=== PATIENT | female | born 1950 | race Caucasian/White ===

== ENCOUNTER 2017-06-05 10:23 | Emergency (ER) | payer BC ==
[2017-06-05 10:44] VITALS: BP 155/82
[2017-06-05] MEDS ORDERED: Lidocaine 1% 50 ML MDV SUBCUT STA (10:44)
--- NOTE | 2017-06-05 10:45 | EDM.PDOC ---
ED HPI GENERAL MEDICAL PROBLEM - General Chief Complaint: Laceration Stated Complaint: Laceration Time Seen by Provider: 06/05/17 10:35 Source of Information: Reports: Patient, RN Notes Reviewed History Limitations: Reports: No Limitations - History of Present Illness INITIAL COMMENTS - FREE TEXT/NARRATIVE: 66 year old female presents to the ED today with laceration to her right orbital region. She was hunting with her and was "scoped" to the right eye. She has a laceration to her eyebrow and another to the lower orbital region. The injury happend about an hour [employer] AN[employer]ING. She had no LOC, vision changes, dizziness, nausea, vomiting. She had no nasal bleeding. She has no bleeding within her eye. Her tetanus is up to date. Right Eye Pain Score (Numeric/FACES): 3 - Related Data Allergies Allergy/AdvReac Type Severity Reaction Status Date / Time No Known Allergies Allergy Verified 05/20/16 16:19 Home Meds: Home Meds Amitriptyline [Elavil] 50 mg PO QPM 09/16/15 [History] Furosemide [Lasix] 20 mg PO DAILY 09/16/15 [History] Acetaminophen [Tylenol Extra Strength] 500 mg PO Q6H PRN 04/06/16 [History] Cholecalciferol (Vitamin D3) [Vitamin D3] 5,000 unit PO DAILY 04/06/16 [History] Gabapentin [Neurontin] 300 mg PO QPM 04/06/16 [History] Magnesium Amino Acid Chelate [Magnesium] 1 tab PO DAILY 04/06/16 [History] Multivitamin [Multivitamins] 1 each PO DAILY 04/06/16 [History] Potassium Chloride 10 meq PO DAILY 04/06/16 [History] Docusate Sodium [Colace] 100 mg PO DAILY PRN 05/01/16 [History] Metoprolol Succinate [Toprol XL] 100 mg PO BID #60 tab.er 05/02/16 [Rx] Rivaroxaban [Xarelto] 20 mg PO DAILY 05/07/16 [History] Past Medical History - Past Health History Medical/Surgical History: Denies Medical/Surgical History Other HEENT History: uses contacts and eyeglasses Cardiovascular History: Reports: Afib, Heart Valve Replacement, Hypertension, Stents Other Cardiovascular History: mitral and tricuspid valve repaired Gastrointestinal History: Reports: GERD 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: Other Psychiatric History: insomnia - Past Surgical History Cardiovascular Surgical History: Reports: Pacer, Other (See Below) Other Cardiovascular Surgeries/Procedures: open heart surgery for valve repair GI Surgical History: Reports: Cholecystectomy Female Surgical History: Reports: Tubal Ligation Social & Family History - Family History Family Medical History: Noncontributory Oncologic: Reports: Other (See Below) - Tobacco Use Smoking Status *Q: Former Smoker Years of Tobacco use: 30 Packs/Tins Daily: 1 Used Tobacco, but Quit: Yes Month Tobacco Last Used: 20 years ago Second Hand Smoke Exposure: No - Caffeine Use Caffeine Use: Reports: Coffee Other Caffeine Use: 1-2 cups - Alcohol Use Days Per Week of Alcohol Use: 2 Number of Drinks Per Day: 2 Total Drinks Per Week: 4 - Recreational Drug Use Recreational Drug Use: No - Living Situation & Occupation Living situation: Reports: , with Spouse Occupation: Employed ED ROS GENERAL - Review of Systems Review Of Systems: See Below Constitutional: Reports: No Symptoms HEENT: Reports: Contact Lenses. Denies: Nosebleed, Vertigo, Vision Change Respiratory: Reports: No Symptoms Cardiovascular: Reports: No Symptoms Skin: Reports: Bruising, Wound Neurological: Reports: No Symptoms. Denies: Confusion, Dizziness, Headache, Numbness, Tingling, Trouble Speaking, Difficulty Walking, Weakness ED EXAM, SKIN/RASH Exam: See Below Exam Limited By: No Limitations General Appearance: Alert, WD/WN, No Apparent Distress Eye Exam: Right Eye: Periorbital Changes (echymosis surrounding the right eye orbit with bruising and two lacerations as described below. no conjuctival injection or bleeding. ), Left Eye: Normal Inspection, Bilateral Eye: EOMI, PERRL Ears: Normal External Exam, Normal TMs Nose: Normal Inspection, Normal Mucosa, No Blood Throat/Mouth: Normal Inspection, Normal Teeth, Normal Oropharynx Head: Facial Swelling, Facial Tenderness, Other (no crepitus, bony step offs, or deformitiy noted to facial bones. no septal deviation or hemotoma. no nasal bleeding ) Neck: Normal Inspection, Supple, Non-Tender, Full Range of Motion. No: Tender Midline Respiratory/Chest: No Respiratory Distress, Lungs Clear Cardiovascular: Regular Rate, Rhythm Neurological: Alert, Oriented, Normal Cognition, Normal Gait Skin: Warm, Dry, Normal Color Location, Skin: Other (lacerations to upper and lower orbital region. Upper laceration measures 2.5cm, lower measures 2 cm. Deep, linear lacerations that are not well approximated. No involvement of the eye lid. ) ED SKIN PROCEDURES - Laceration/Wound Repair Right Upper Other Lac/Wound length In cm: 2.5 (Upper orbital region, within the eyebrow) Appearance: Subcutaneous, Linear, Clean Distal NVT: Neuro & Vascular Intact Anesthetic Type: Local Local Anesthesia - Lidocaine (Xylocaine): 1% Plain Local Anesthetic Volume: 2cc Exploration/Debridement/Repair: Wound Explored, In a Bloodless Field, Explored to Base, No Foreign Material Found Suture Size: other (5-0) # of Sutures: 7 Suture Type: Nylon, Interrupted, Simple Suture Size: other (5-0) # of Sutures: 3 Repaired with: Vicryl Sterile Dressing Applied: Nurse Tetanus Status Addressed: Yes Complications: No Right Lower Other Lac/Wound length In cm: 2 (lower orbital region ) Appearance: Subcutaneous, Linear, Clean Distal NVT: Neuro & Vascular Intact Anesthetic Type: Local Local Anesthetic Volume: 1cc Skin Prep: Saline Exploration/Debridement/Repair: Wound Explored, In a Bloodless Field, Explored to Base, No Foreign Material Found Suture Size: other (5-0) # of Sutures: 6 Suture Type: Nylon, Interrupted, Simple Sterile Dressing Applied: Nurse Tetanus Status Addressed: Yes Complications: No Course - Vital Signs Last Recorded V/S: Last Vital Signs Temp 98.2 F 06/05/17 10:31 Pulse 70 06/05/17 10:31 Resp 18 06/05/17 10:31 BP 155/82 H 06/05/17 10:31 Pulse Ox 100 06/05/17 10:31 - Orders/Labs/Meds Meds: Medications Discontinued Medications Generic Name Dose Route Start Last Admin Trade Name Freq PRN Reason Stop Dose Admin Lidocaine HCl 50 ml 06/05/17 10:44 06/05/17 10:52 Xylocaine 1% SUBCUT 06/05/17 10:45 50 ml NOW STA Administration - Re-Assessments/Exams Free Text/Narrative Re-Assessment/Exam: Patient has no physical exam findings to indicate bony abnormality. She has a normal neuro exam. Wounds repaired. See procedural notes. Educated on wound care , return precautions and f/u instructions. Discharge instructions as documented. Departure - Departure Time of Disposition: 12:02 Disposition: Home, Self-Care 01 Condition: Good Clinical Impression: Laceration - Discharge Information Instructions: Laceration Care, Adult Referrals: Caitie Louise NP [Primary Care Provider] - Forms: ED Department Discharge Additional Instructions: Laceration with suture repair Try to keep initial dressing in place for 24 hours After 24 hours, you can gently wash the wound with gentle soap and water Do not submerge the area in water until the sutures are out Apply antibiotic ointment and keep the wound covered for first 2-3 days then leave open to air Keep wound covered if there is a chance it can get dirty Sutures need to be removed on Wednesday of this next week [facility] removes sutures for free. Their hours are 8am-6pm Wednesday through Wednesday. Return to clinic if signs or symptoms of infection arise, including increased redness, swelling, drainage, or fever Tylenol or Ibuprofen as needed for pain
== END 2017-06-05 12:15 | disposition home or self-care (01) ==
LOC: JD.ED 10:23
DX: S05.41XA Penetrating wound of orbit with or without foreign body, right eye, initial encounter (principal); Z79.899 Other long term (current) drug therapy; Z87.891 Personal history of nicotine dependence; W22.8XXA Striking against or struck by other objects, initial encounter
CPT/HCPCS: 12011; 12013; 99282-25; 99283-25

== ENCOUNTER 2020-05-08 14:38 | Emergency (ER) | payer MEDICARE, OTHER ==
[2020-05-08] MEDS ORDERED: Ondansetron 4 MG/2 ML SDV IVPUSH ONE (14:59)
--- NOTE | 2020-05-08 14:59 | EDM.PDOC ---
ED HPI GENERAL MEDICAL PROBLEM - General Chief Complaint: Trauma Stated Complaint: [facility] Time Seen by Provider: 05/08/20 14:53 Source of Information: Reports: Patient History Limitations: Reports: No Limitations - History of Present Illness INITIAL COMMENTS - FREE TEXT/NARRATIVE: 69-year-old female presents to the ED per [facility] the history suggest that she was out riding her horse this afternoon and the horse likely slipped on icy surface causing her to fall from the horse primarily onto her right shoulder. Patient has amnesia for the event suggesting that she also suffered transient loss of consciousness. Other family members were around but nobody else attended the ED to provide any history as to how long she may have been unresponsive. She is now alert and oriented complaining of only minor headache and no nausea. She states she did have significant nausea initially but it is improved. She believes that the accident occurred around 1230 hrs. today. Chief complaint is pain right proximal shoulder and arm and she has her right arm immobilized with her scarf in a sling-like fashion. Complaining of pain in her right ankle as well. She did weight-bear after falling from the horse and states she has no pain in her pelvis back or hips. Both knees are also normal. She denies any pain in her chest on deep inspiration. Currently she rates her pain as 5-6 out of 10 primarily in her right shoulder. She arrives with a c-collar in place but it is ill fitting. She is not on spine board. Vital signs reveal a temperature 36.4. Her extremities are cool to touch. Blood pressure was 164/82. O2 sats are 97% with respiratory of 20. Heart rate is 74. Onset: Today, Sudden Onset Date: 05/08/20 Onset Time: 12:30 Duration: Hour(s):, Constant Location: Reports: Upper Extremity, Right (Pain primarily right proximal humerus.), Lower Extremity, Right (And right ankle primarily lateral aspect with "Muck" boot still in place) Quality: Reports: Ache, Throbbing Severity: Moderate Improves with: Reports: Rest (To 6 out of 10.) Worsens with: Reports: Movement Context: Reports: Trauma (She is not exactly sure what happened. She was riding a horse and she believes the horse probably slipped on icy surface throwing her from the horse. She has amnesia for the event.). Denies: Activity, Exercise, Lifting, Sick Contact Associated Symptoms: Reports: Confusion (Knees you for the event or of trauma.), Nausea/Vomiting. Denies: Chest Pain ( Transient LOC by history), Cough, cough w sputum, Diaphoresis, Headaches, Loss of Appetite, Malaise, Rash (Transient nausea somewhat better now.), Seizure, Shortness of Breath, Syncope, Weakness Treatments MULE SPINNER: Reports: Spinal Immobilization (With c-collar in place. It was ill fitting.) Right Shoulder Pain Score (Numeric/FACES): 8 - Related Data Allergies Allergy/AdvReac Type Severity Reaction Status Date / Time No Known Allergies Allergy Verified 05/08/20 14:59 Home Meds: Home Meds Amitriptyline [Elavil] 50 mg PO QPM 09/16/15 [History] Furosemide [Lasix] 20 mg PO DAILY 09/16/15 [History] Acetaminophen [Tylenol Extra Strength] 500 mg PO Q6H PRN 04/06/16 [History] Cholecalciferol (Vitamin D3) [Vitamin D3] 5,000 unit PO DAILY 04/06/16 [History] Gabapentin [Neurontin] 300 mg PO QPM 04/06/16 [History] Magnesium Amino Acid Chelate [Magnesium] 1 tab PO DAILY 04/06/16 [History] Multivitamin [Multivitamins] 1 each PO DAILY 04/06/16 [History] Potassium Chloride 10 meq PO DAILY 04/06/16 [History] Docusate Sodium [Colace] 100 mg PO DAILY PRN 05/01/16 [History] Metoprolol Succinate [Toprol XL] 100 mg PO BID #60 tab.er 05/02/16 [Rx] Rivaroxaban [Xarelto] 20 mg PO DAILY 05/07/16 [History] oxyCODONE HCl/Acetaminophen [Percocet 5-325 mg Tablet] 1 - 2 each PO Q4H PRN #20 tablet 05/08/20 [Rx] Past Medical History - Past Health History Medical/Surgical History: Denies Medical/Surgical History Other HEENT History: uses contacts and eyeglasses Cardiovascular History: Reports: Afib, Heart Failure, Heart Valve Replacement, Hypertension, Pacemaker, Stents Other Cardiovascular History: mitral and tricuspid valve repaired Gastrointestinal History: Reports: GERD 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: Musculoskeletal History: Reports: Osteoarthritis, Osteoporosis Other Psychiatric History: insomnia - Past Surgical History Cardiovascular Surgical History: Reports: Pacer, Other (See Below) Other Cardiovascular Surgeries/Procedures: open heart surgery for valve repair GI Surgical History: Reports: Cholecystectomy Female Surgical History: Reports: Tubal Ligation Social & Family History - Family History Family Medical History: Noncontributory Oncologic: Reports: Other (See Below) - Caffeine Use Caffeine Use: Reports: Coffee Other Caffeine Use: 1-2 cups - Living Situation & Occupation Living situation: Reports: , with Spouse Occupation: Employed Review of Systems - Review of Systems Review Of Systems: See Below Constitutional: Denies: Chills, Diaphoresis, Fever, Weakness, Other Eyes: Reports: Glasses Ears: Reports: No Symptoms Nose: Reports: No Symptoms Mouth/Throat: Reports: No Symptoms Respiratory: Reports: Shortness of Breath, Cough. Denies: Wheezing, Pleuritic Chest Pain (On exertion.), Sputum (Chronic mild nonproductive cough) Cardiovascular: Reports: Edema (Sometimes has a little bit of edema in lower extremities.). Denies: Chest Pain, Irregular Heart Rate, Lightheadedness GI/Abdominal: Reports: No Symptoms Genitourinary: Reports: Other (Urinary frequency. Occasional urge incontinence) Musculoskeletal: Reports: Neck Pain, Back Pain, Other (Pain primarily right proximal humerus right lateral ankle) Skin: Reports: No Symptoms Neurological: Reports: No Symptoms ED EXAM, GENERAL - Physical Exam Exam: See Below Exam Limited By: No Limitations General Appearance: Alert, WD/WN, No Apparent Distress, Other (Temperature is 36.4 with a heart rate of 74 and sinus. Respiratory of 20 with O2 sats of 96% room air BP is mildly elevated 164/82. Patient does have primary hypertension) Eye Exam: Bilateral Eye: Normal Inspection, PERRL Ears: Normal TMs Nose: Normal Inspection Throat/Mouth: Normal Inspection, Normal Lips, Normal Oropharynx, Other Head: Atraumatic, Normocephalic, Other (Obvious trauma to the head neck or face.) Neck: Normal Inspection, Non-Tender (On palpation in the midline.), Full Range of Motion, Other (Collar removed as neck was cleared clinically.). No: Lymphadenopathy (L), Lymphadenopathy (R) Respiratory/Chest: Lungs Clear, Normal Breath Sounds, No Accessory Muscle Use, Respiratory Distress (Mild tachypnea.), Decreased Breath Sounds (Sounds are diminished to the lower 20% lung ritchie bilaterally compared with COPD.) Cardiovascular: Normal Peripheral Pulses, Regular Rate, Rhythm, No Edema, No Gallop, No Rub, Systolic Murmur (Grade 1 out of 6 at the left parasternal border.), Other (Well-healed midline sternotomy incision from previous valve surgery on both tricuspid and mitral valves. Pacemaker left upper anterior chest.) Peripheral Pulses: 2+: Radial (L), Radial (R), Posterior Tibial (L), Posterior Tibial (R), Dorsalis Pedis (L), Dorsalis Pedis (R) GI/Abdominal: Normal Bowel Sounds, Soft, Non-Tender, No Organomegaly, No Abnormal Bruit, No Mass, Pelvis Stable. No: Guarding, Rigid, Rebound, Tender Back Exam: Other (Mild kyphosis thoracic spine. No abrasions contusions to the upper or lower back. No pain on firm palpation over the thoracic and lumbar vertebra.) Extremities: Other (Some tenderness elicited with some swelling lateral aspect of the right ankle. Medial ankle ligaments are normal. No apparent injuries to the foot bones on the right side. She is able to lift both legs off the gurney. She has good internal/external rotation of both hips. No evidence of any traumatic injuries to the knees. Pelvis reveals no evidence of injury.). No: Pedal Edema Neurological: Alert, Oriented, CN II-XII Intact, Normal Cognition. No: Normal Gait Psychiatric: Normal Affect, Normal Mood Skin Exam: Warm, Dry, Intact, Normal Color, No Rash #1 Interpretation EKG Date: 05/08/20 Time: 15:18 Rhythm: Other (Ventricular paced rhythm) Rate (Beats/Min): 70 [place]: LAD-Left [place] Deviation (-85 degrees) EKG Interpretation Comments: 100% ventricular paced rhythm no further analysis attempted Course - Vital Signs Last Recorded V/S: Last Vital Signs Temp 36.4 C 05/08/20 14:53 Pulse 74 05/08/20 14:53 Resp 20 05/08/20 14:53 BP 164/82 H 05/08/20 14:53 Pulse Ox 96 05/08/20 14:53 - Orders/Labs/Meds Orders: Active Orders 24 hr Category Date Time Status EKG Documentation Completion [RC] STAT Care 05/08/20 14:55 Active Ankle Min 3V Rt [CR] Stat Exams 05/08/20 14:59 Taken Cervical Spine wo Cont [CT] Stat Exams 05/08/20 14:57 Taken Chest 1V Frontal [CR] Stat Exams 05/08/20 14:54 Taken Head wo Cont [CT] Stat Exams 05/08/20 14:56 Taken Humerus Rt [CR] Stat Exams 05/08/20 14:58 Taken URINALYSIS W/MICROSCOPIC [UA W/MICROSCOPIC] [URIN] Stat Lab 05/08/20 14:56 Ordered Dextrose 5%-0.9% NaCl [Dextrose 5%-Normal Saline] 1,000 Med 05/08/20 15:00 Active ml IV ASDIRECTED Durable Medical Equipment for Discharge [DME for Oth 05/08/20 16:43 Ordered Discharge] [COMM] Stat Medication Orders Dextrose/Sodium Chloride (Dextrose 5%-Normal Saline) 1,000 mls @ 150 mls/hr IV ASDIRECTED BERNABE Last Admin: 05/08/20 15:18 Dose: 150 mls/hr Documented by: RAIZA Labs: Laboratory Tests 05/08/20 05/08/20 05/08/20 Range/Units 15:56 15:56 15:56 WBC 8.33 (3.98-10.04) K/mm3 RBC 3.63 L (3.98-5.22) M/mm3 Hgb 11.3 D (11.2-15.7) gm/dl Hct 36.2 (34.1-44.9) % MCV 99.7 H (79.4-94.8) fl MCH 31.1 (25.6-32.2) pg MCHC 31.2 L (32.2-35.5) g/dl RDW Std Deviation 49.1 H (36.4-46.3) fL Plt Count 170 L (182-369) K/mm3 MPV 9.1 L (9.4-12.3) fl Neut % (Auto) 87.6 H (34.0-71.1) % Lymph % (Auto) 7.9 L (19.3-51.7) % [place] % (Auto) 3.6 L (4.7-12.5) % Eos % (Auto) 0.7 (0.7-5.8) Baso % (Auto) 0.1 (0.1-1.2) % Neut # (Auto) 7.29 H (1.56-6.13) K/mm3 Lymph # (Auto) 0.66 L (1.18-3.74) K/mm3 [place] # (Auto) 0.30 (0.24-0.36) K/mm3 Eos # (Auto) 0.06 (0.04-0.36) K/mm3 Baso # (Auto) 0.01 (0.01-0.08) K/mm3 Manual Slide Review Abnormal smear PT 13.6 H (9.7-11.7) SECONDS INR 1.28 APTT 29 (22-31) SECONDS Sodium 143 (136-145) mEq/L Potassium 4.3 (3.5-5.1) mEq/L Chloride 105 (98-107) mEq/L Carbon Dioxide 28 (21-32) mEq/L Anion Gap 14.3 (5-15) BUN 18 (7-18) mg/dL Creatinine 1.2 H (0.55-1.02) mg/dL Est Cr Clr Drug Dosing 42.59 mL/min Estimated GFR (MDRD) 45 (>60) mL/min BUN/Creatinine Ratio 15.0 (14-18) Glucose 115 (80-115) mg/dL Calcium 9.7 (8.5-10.1) mg/dL Magnesium 2.2 (1.8-2.4) mg/dl Total Bilirubin 0.7 (0.2-1.0) mg/dL AST 31 (15-37) U/L ALT 43 (14-59) U/L Alkaline Phosphatase 126 H (46-116) U/L NT-Pro-B Natriuret Pep (0-125) pg/mL Total Protein 6.7 (6.4-8.2) g/dl Albumin 4.0 (3.4-5.0) g/dl Globulin 2.7 gm/dL Albumin/Globulin Ratio 1.5 (1-2) 05/08/20 Range/Units 15:56 WBC (3.98-10.04) K/mm3 RBC (3.98-5.22) M/mm3 Hgb (11.2-15.7) gm/dl Hct (34.1-44.9) % MCV (79.4-94.8) fl MCH (25.6-32.2) pg MCHC (32.2-35.5) g/dl RDW Std Deviation (36.4-46.3) fL Plt Count (182-369) K/mm3 MPV (9.4-12.3) fl Neut % (Auto) (34.0-71.1) % Lymph % (Auto) (19.3-51.7) % [place] % (Auto) (4.7-12.5) % Eos % (Auto) (0.7-5.8) Baso % (Auto) (0.1-1.2) % Neut # (Auto) (1.56-6.13) K/mm3 Lymph # (Auto) (1.18-3.74) K/mm3 [place] # (Auto) (0.24-0.36) K/mm3 Eos # (Auto) (0.04-0.36) K/mm3 Baso # (Auto) (0.01-0.08) K/mm3 Manual Slide Review PT (9.7-11.7) SECONDS INR APTT (22-31) SECONDS Sodium (136-145) mEq/L Potassium (3.5-5.1) mEq/L Chloride (98-107) mEq/L Carbon Dioxide (21-32) mEq/L Anion Gap (5-15) BUN (7-18) mg/dL Creatinine (0.55-1.02) mg/dL Est Cr Clr Drug Dosing mL/min Estimated GFR (MDRD) (>60) mL/min BUN/Creatinine Ratio (14-18) Glucose (80-115) mg/dL Calcium (8.5-10.1) mg/dL Magnesium (1.8-2.4) mg/dl Total Bilirubin (0.2-1.0) mg/dL AST (15-37) U/L ALT (14-59) U/L Alkaline Phosphatase (46-116) U/L NT-Pro-B Natriuret Pep 1047 H (0-125) pg/mL Total Protein (6.4-8.2) g/dl Albumin (3.4-5.0) g/dl Globulin gm/dL Albumin/Globulin Ratio (1-2) Meds: Medications Generic Name Dose Route Start Last Admin Trade Name Freq PRN Reason Stop Dose Admin Dextrose/Sodium Chloride 1,000 mls @ 150 mls/hr 05/08/20 15:00 05/08/20 15:18 Dextrose 5%-Normal Saline IV 150 mls/hr ASDIRECTED BERNABE Administration Discontinued Medications Generic Name Dose Route Start Last Admin Trade Name Garth PRN Reason Stop Dose Admin Hydromorphone HCl 0.5 mg 05/08/20 15:00 05/08/20 15:19 Dilaudid IVPUSH 05/08/20 15:01 0.5 mg ONETIME ONE Administration Ondansetron HCl 4 mg 05/08/20 14:59 05/08/20 15:19 Zofran IVPUSH 05/08/20 15:00 4 mg ONETIME ONE Administration - Radiology Interpretation Free Text/Narrative:: 69-year-old female presents to the ED for evaluation of injuries sustained from falling from a horse. It is suspect that the horse slipped on icy surface and they both fell to the ground. Patient has amnesia for the event and there are no family members around to document what is happened to her. She believes she lost consciousness for a brief period of time. At this time she has no headache but did have nausea initially which is somewhat better. Primary pain is proximal right shoulder and right lateral ankle. No other injuries were identified on complete physical exam. She will have CT head and cervical spine performed. She will have x-rays of her right humerus and right ankle carried out. IV will be D5 normal saline at 150 mils per hour. Given Dilaudid 0.5 mg IV for pain relief with Zofran 4 mg IV for nausea relief. Routine labs obtained. Urinalysis when 1 becomes available to us. - Re-Assessments/Exams Free Text/Narrative Re-Assessment/Exam: 05/08/20 16:30: CT of the brain reveals no intracranial bleeding or mass-effect. No skull fractures identified. Diffuse small vessel ischemic change appreciated both basal ganglia appropriate for the patient's age. CT cervical spine reveals advanced degenerative changes at multiple levels particularly of the facet joints. Alignment is normal and there is no fractures. X-ray of the right humerus reveals a slightly impacted fracture of the proximal right humerus with good position. She will be treated with a sling and swath. Chest x-ray reveals no fractured ribs on the right side and acromioclavicular joint and scapula on the right side are normal as well. X-ray of the right ankle reveals no fractures in either malleoli. Appears to have sprained the lateral ligaments. This will be treated with an Shady wrap on during the day and off at night for the next 10 days. The plan will be to discharge the patient with the sling and swath on the right upper extremity for the next 3 weeks. I will have her follow-up with Dr. Gallo in the orthopedic surgical clinic. She will phone and make her own appointment. I have placed her on Percocet tabs 5/325 mg strength ideally 1 tablet with Motrin 600 mg every 6 hours for pain relief. Ice pack to the right shoulder for 1/2-hour out of every 4 hours for the next 2 days. She likely suffered a closed head injury with possible concussion as there appears to be transient loss of consciousness. She will not be very active in the next few weeks due to her other injuries but advised to make sure she does not hurt her head or take any chances that wish caused her to hurt her head in the next 2 weeks. Departure - Departure Time of Disposition: 16:36 Disposition: Home, Self-Care 01 Condition: Fair Clinical Impression: Animal-rider injured by fall from or being thrown from horse in noncollision accident, initial encounter, Closed head injury with brief loss of consciousness Fracture, humerus closed Qualifiers: Encounter type: initial encounter Humerus Location: proximal Fracture alignment: nondisplaced Laterality: right Sprain of ankle, calcaneofibular ligament Qualifiers: Encounter type: initial encounter Laterality: right Qualified Code(s): S93.411A - Sprain of calcaneofibular ligament of right ankle, initial encounter - Discharge Information *PRESCRIPTION DRUG MONITORING PROGRAM REVIEWED*: Not Applicable *COPY OF PRESCRIPTION DRUG MONITORING REPORT IN PATIENT [place]: Not Applicable Prescriptions: oxyCODONE HCl/Acetaminophen [Percocet 5-325 mg Tablet] 1 - 2 each PO Q4H PRN #20 tablet PRN Reason: pain relief. Instructions: Humerus Fracture Treated With Immobilization, [id number], Ankle Sprain, [id number] Referrals: PCP,None [Primary Care Provider] - Forms: ED Department Discharge Additional Instructions: Evaluation in the emergency room today in regards to injury sustained from a horse accident. It appears most likely that the horse lost its footing and thus slipped and fell causing her to fall from the horse and hit the ground hard primarily landing on your right shoulder. The history also suggest you have amnesia for the event which means you suffered a closed head injury with transient loss of consciousness. At this time there is no clinical evidence that you have suffered a concussion. However you should take concussion precautions which week means no activities over the next 2 weeks that would potentially reinjure your head. X-rays of the right shoulder and arm reveal a fracture of the proximal right humerus up near the shoulder with good position of the bone. Treatment is to wear a sling and swath for the next 3 weeks until the bone can start to heal. We will have you follow-up with Dr. Gallo orthopedic surgeon on the side of the hospital until the bone is well-healed. These phone [phone] to arrange an appointment to see him sometime in the next 10 to 12 days. Chest x-ray revealed no broken ribs or injury to the right shoulder blade. No injury to the collarbone or the acromioclavicular joint on top of your shoulder. X-rays of the right ankle were also carried out and no fractures were identified. It appears that you have sprained the outside of the lateral ligaments of the ankle during the injury today. CT scan of the brain was carried out and reveals no fractures of the skull and no intracranial bleeding or swelling. CT of the neck was also carried out due to the nature of your injury with loss of consciousness. No fractures in the cervical neck bones were identified. There is advanced degenerative arthritic changes at multiple levels in the neck bones. Treatment is time to heal. Suggest ice pack to the right sh oulder 1/2-hour out of every 4 hours for the next 2 days and after that may apply heat to the area. Again the right arm is to be immobilized in sling and swath for the next 3 weeks or until cleared otherwise by Dr. Gallo. Right ankle is to have Shady wrap applied on during the day and off at night for the next 10 days. Pain medicine is to be Percocet tablets 5/325 mg usually 1 tablet with Motrin 600 mg every 6 hours will do the trick to control pain. Of note pain medicine always causes constipation and so this is an issue for you suggest picking up some MiraLAX powder while you are at the drugstore and take 1 scoop daily to prevent constipation from occurring while on the pain pills. Sepsis Event Note (ED) - Focused Exam Vital Signs: Vital Signs Temp Pulse Resp BP Pulse Ox 05/08/20 14:53 36.4 C 74 20 164/82 H 96 - My Orders Last 24 Hours: My Active Orders 05/08/20 14:54 Chest 1V Frontal [CR] Stat 05/08/20 14:55 EKG Documentation Completion [RC] STAT 05/08/20 14:56 Head wo Cont [CT] Stat URINALYSIS W/MICROSCOPIC [UA W/MICROSCOPIC] [URIN] Stat 05/08/20 14:57 Cervical Spine wo Cont [CT] Stat 05/08/20 14:58 Humerus Rt [CR] Stat 05/08/20 14:59 Ankle Min 3V Rt [CR] Stat 05/08/20 15:00 Dextrose 5%-0.9% NaCl [Dextrose 5%-Normal Saline] 1,000 ml IV ASDIRECTED 05/08/20 16:43 Durable Medical Equipment for Discharge [DME for Discharge] [COMM] Stat - Assessment/Plan Last 24 Hours: My Active Orders 05/08/20 14:54 Chest 1V Frontal [CR] Stat 05/08/20 14:55 EKG Documentation Completion [RC] STAT 05/08/20 14:56 Head wo Cont [CT] Stat URINALYSIS W/MICROSCOPIC [UA W/MICROSCOPIC] [URIN] Stat 05/08/20 14:57 Cervical Spine wo Cont [CT] Stat 05/08/20 14:58 Humerus Rt [CR] Stat 05/08/20 14:59 Ankle Min 3V Rt [CR] Stat 05/08/20 15:00 Dextrose 5%-0.9% NaCl [Dextrose 5%-Normal Saline] 1,000 ml IV ASDIRECTED 05/08/20 16:43 Durable Medical Equipment for Discharge [DME for Discharge] [COMM] Stat
[2020-05-08] MEDS ORDERED: Dextrose 5%-0.9% NaCl 1,000 ML IV SCH (15:00)
[2020-05-08] MEDS ORDERED: HYDROmorphone 0.5 MG/0.5 ML Syringe IVPUSH ONE (15:00)
[2020-05-08 17:17] VITALS: BP 169/91; PULSE 70
== END 2020-05-08 17:00 | disposition home or self-care (01) ==
LOC: JD.ED 14:38
DX: S42.211A Unspecified displaced fracture of surgical neck of right humerus, initial encounter for closed fracture (principal); S82.831A Other fracture of upper and lower end of right fibula, initial encounter for closed fracture; S06.9X9A Unspecified intracranial injury with loss of consciousness of unspecified duration, initial encounter; S93.411A Sprain of calcaneofibular ligament of right ankle, initial encounter; I48.91 Unspecified atrial fibrillation; I11.0 Hypertensive heart disease with heart failure; I50.9 Heart failure, unspecified; M40.204 Unspecified kyphosis, thoracic region; Z79.899 Other long term (current) drug therapy; Z79.01 Long term (current) use of anticoagulants; V80.010A Animal-rider injured by fall from or being thrown from horse in noncollision accident, initial encounter
CPT/HCPCS: 36415; 70450; 71045; 72125; 73060-RT; 73610-RT; 80053; 83735; 83880; 85025; 85610; 85730; 93005; 96374; 96375; 99284; 99285-25; J1170; J2405; J7042

== ENCOUNTER 2021-03-30 16:43 | Emergency (ER) | payer MEDICARE, OTHER ==
[2021-03-30 17:14] VITALS: BP 153/102; PULSE 91
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
--- NOTE | 2021-03-31 07:20 | CR ---
Left knee: 4 views of the left knee were obtained. Comparison: No prior left knee study is available, subsequent left knee CT exam performed later on the same date is available. Lateral plateau is slightly irregular compatible with a small fracture. Small joint effusion is seen. No additional fracture or other abnormality is appreciated. Impression: 1. Slight lateral tibial plateau fracture. 2. Small joint effusion. Diagnostic code #3
--- NOTE | 2021-04-01 08:29 | CT ---
CT left knee Technique: Multiple axial sections through the left knee were obtained. Reconstructed coronal and sagittal images were obtained. Comparison: Prior left knee radiographic exam performed earlier on the same day (5:21 PM). Findings: Slightly comminuted fracture is seen within the lateral tibial plateau which shows minimal impaction and articular extension. This involves the posterior aspect of the tibial plateau. Additional slightly impacted fracture is noted within the posterior aspect of the medial region of the medial tibial plateau. Joint effusion is seen. Osteopenia is noted. Calcifications are seen off the medial and posterior joint compatible with dystrophic calcifications. Small bone island is noted within the distal right femoral condyle. Minimal calcification is seen within the lateral aspect of the lateral tibial plateau compatible with additional dystrophic calcification. Impression: 1. Slightly impacted fractures within the posterior aspect of the lateral tibial plateau as well as minimal impacted fracture within the medial aspect of the medial tibial plateau. 2. Joint effusion. 3. Slight dystrophic calcifications and osteopenia. Diagnostic code #3 I agree with preliminary report from [facility], finalized on 03/30/21, 9:20 PM CDT, code 1 MTDD
== END 2021-03-30 19:36 | disposition home or self-care (01) ==
LOC: JD.ED 16:43
DX: S82.142A Displaced bicondylar fracture of left tibia, initial encounter for closed fracture (principal); I48.91 Unspecified atrial fibrillation; I11.0 Hypertensive heart disease with heart failure; I50.9 Heart failure, unspecified; M19.90 Unspecified osteoarthritis, unspecified site; Z79.899 Other long term (current) drug therapy; Z79.01 Long term (current) use of anticoagulants; V86.59XA Driver of other special all-terrain or other off-road motor vehicle injured in nontraffic accident, initial encounter
CPT/HCPCS: 73564-26-LT; 73564-LT; 73700-26-LT; 73700-LT; 99283; 99284-25

== ENCOUNTER 2022-06-11 20:30 | Inpatient (IN) | payer MEDICARE, OTHER ==
[2022-06-11] MEDS ORDERED: Sodium Chloride 0.9% 10 ML Syringe FLUSH PRN (21:02)
[2022-06-11] MEDS ORDERED: Sodium Chloride 0.9% 1,000 ML IV ONE (21:03)
[2022-06-11] MEDS ORDERED: HYDROmorphone 0.5 MG/0.5 ML Syringe IVPUSH ONE (21:05)
[2022-06-11 21:54] LABS: ESTIMATED GFR 37 mL/min (>60)
[2022-06-11] MEDS ORDERED: Iopamidol 612 MG/ML 100 ML Bottle IVPUSH ONE (22:24)
[2022-06-11] MEDS ORDERED: VANCOmycin 1.75 GM/350 ML 1.75 GM in Premix Bag 1 BAG IV ONE (22:56)
[2022-06-12] MEDS ORDERED: Acetaminophen 325 MG Tab PO PRN (00:51)
[2022-06-12] MEDS ORDERED: Ondansetron 4 MG/2 ML SDV IV PRN (00:51)
[2022-06-12] MEDS ORDERED: Piperacillin/Tazobactam 4.5 GM in Sodium Chloride 0.9% 100 ML IV ONE (01:00)
[2022-06-12] MEDS ORDERED: Piperacillin/Tazobactam 3.375 GM in Sodium Chloride 0.9% 100 ML IV SCH (01:00)
[2022-06-12] MEDS: Sodium Chloride 0.9% 1,000 ML IV SCH ×2 (01:41→14:10)
[2022-06-12] MEDS: Piperacillin/Tazobactam 4.5 GM in Sodium Chloride 0.9% 100 ML IV SCH ×2 (08:42→17:12)
[2022-06-12] MEDS: Metoprolol Succinate 50 MG Tab.ER PO SCH ×2 (08:46→20:59)
[2022-06-12] MEDS: Potassium Chloride 10 MEQ Tab.ER PO SCH (08:46)
[2022-06-12] MEDS: Furosemide 20 MG Tab PO SCH (08:46)
[2022-06-12] MEDS ORDERED: Lidocaine 1% with EPINEPHrine 1:100,000 10 ML MDV ONE ×2 (10:03)
[2022-06-12] MEDS ORDERED: Bupivacaine 0.5% 30 ML SDV ONE (10:03)
[2022-06-12] MEDS ORDERED: Midazolam 1 MG/ML 2 ML SDV ONE (10:16)
[2022-06-12] MEDS ORDERED: fentaNYL 100 MCG/2 ML SDV ONE (10:16)
[2022-06-12] MEDS ORDERED: Lidocaine 1% 6 ML ONE (10:16)
[2022-06-12] MEDS ORDERED: Dexmedetomidine 200 MCG/2 ML SDV ONE (10:20)
[2022-06-12] MEDS ORDERED: Propofol 200 MG/20 ML SDV ONE ×2 (10:21→10:22)
[2022-06-12] MEDS ORDERED: Phenylephrine HCl In 0.9% NaCl 1 MG/10 ML Vial ONE (10:59)
[2022-06-12] MEDS: oxyCODONE 5 MG Tab PO PRN (15:08)
[2022-06-12] MEDS: Gabapentin 300 MG Cap PO SCH (17:01)
[2022-06-12] MEDS: Amitriptyline 25 MG Tab PO SCH (20:59)
[2022-06-13] MEDS: Piperacillin/Tazobactam 4.5 GM in Sodium Chloride 0.9% 100 ML IV SCH ×3 (00:29→16:01)
[2022-06-13] MEDS: Sodium Chloride 0.9% 1,000 ML IV SCH (05:02)
[2022-06-13] MEDS: Bacitracin Oint 15 GM Tube TOP SCH (08:00)
[2022-06-13] MEDS: Metoprolol Succinate 50 MG Tab.ER PO SCH ×2 (08:02→20:31)
[2022-06-13] MEDS: Furosemide 20 MG Tab PO SCH (08:03)
[2022-06-13] MEDS: Potassium Chloride 10 MEQ Tab.ER PO SCH (08:03)
[2022-06-13] MEDS: oxyCODONE 5 MG Tab PO PRN (08:10)
[2022-06-13] MEDS ORDERED: Collagenase Oint 30 GM Tube TOP SCH (09:00)
[2022-06-13] MEDS: Gabapentin 300 MG Cap PO SCH (17:07)
[2022-06-13] MEDS: Amitriptyline 25 MG Tab PO SCH (20:31)
[2022-06-13] MEDS ORDERED: VANCOmycin 1.25 GM/250 ML 1.25 GM in Premix Bag 1 BAG IV SCH (23:00)
[2022-06-14] MEDS: Piperacillin/Tazobactam 4.5 GM in Sodium Chloride 0.9% 100 ML IV SCH ×2 (01:27→08:21)
[2022-06-14] MEDS: Bacitracin Oint 15 GM Tube TOP SCH (08:23)
[2022-06-14] MEDS: oxyCODONE 5 MG Tab PO PRN (08:24)
[2022-06-14] MEDS: Potassium Chloride 10 MEQ Tab.ER PO SCH (08:24)
[2022-06-14] MEDS: Metoprolol Succinate 50 MG Tab.ER PO SCH (08:25)
[2022-06-14] MEDS: Furosemide 20 MG Tab PO SCH (08:26)
[2022-06-14 08:29] VITALS: BP 118/98; PULSE 94
[2022-06-14] MEDS ORDERED: Rivaroxaban 10 MG Tab PO SCH (09:00)
== END 2022-06-14 12:00 | disposition home or self-care (01) | DRG 572 ==
LOC: JD.ED 20:30 → JD.MS 23:08 → OBSVTOIN 23:08 → JD.ED 06-12 00:12
PROVIDERS: ADMIT Internal Medicine; ATTEND Internal Medicine
PROC: 0JBP0ZZ Excision of Left Lower Leg Subcutaneous Tissue and Fascia, Open Approach (ICD-10-PCS; principal; 2022-06-12)
DX: L03.116 Cellulitis of left lower limb (principal); S81.802A Unspecified open wound, left lower leg, initial encounter; W22.09XA Striking against other stationary object, initial encounter; I48.91 Unspecified atrial fibrillation; I48.0 Paroxysmal atrial fibrillation; I11.0 Hypertensive heart disease with heart failure; I50.9 Heart failure, unspecified; M19.90 Unspecified osteoarthritis, unspecified site; K21.9 Gastro-esophageal reflux disease without esophagitis; Z95.2 Presence of prosthetic heart valve; Z79.899 Other long term (current) drug therapy; Z98.890 Other specified postprocedural states; Z79.01 Long term (current) use of anticoagulants; Z90.49 Acquired absence of other specified parts of digestive tract; Z98.51 Tubal ligation status
CPT/HCPCS: 36415; 73701; 80053; 83605; 85007; 85027; 85610; 86140; 87040 ×2; J1170; J3490; J7030; Q9967; 00400; 80048; 80202; 87070; 87075; 87077; 87186; 87205; 96361; 96365; 96366; 96367; 96375; 99284-25; A9270-GY; G0378; J2250; J2543; J2704; J3010; J3370; J7050

== ENCOUNTER 2024-11-29 21:00 | Emergency (ER) | payer MEDICARE, OTHER ==
[2024-11-29] MEDS ORDERED: Sodium Chloride 0.9% 10 ML Syringe FLUSH PRN (21:17)
[2024-11-29 21:26] LABS: BASOPHILS PERCENT AUTO 0.5 % (0.0-1.0); EOSINOPHILS ABSOLUTE AUTO 0.1 K/mm3 (0.0-0.4); HEMATOCRIT 42.1 % (37.0-47.0); HEMOGLOBIN 13.7 gm/dl (12.0-16.0); IMMATURE GRAN ABSOLUTE AUTO 0.02 K/mm3 (0.00-0.05); IMMATURE GRAN PERCENT AUTO 0.4 % (0.0-0.4); LYMPHOCYTES ABSOLUTE AUTO 1.1 K/mm3 (1.0-4.8); LYMPHOCYTES PERCENT AUTO 19.7 % (24.0-44.0); MEAN CORPUSCULAR HEMOGLOBIN 31.5 pg (28.0-32.0); MEAN CORPUSCULAR HGB CONC 32.5 g/dl (32.0-36.0); MEAN CORPUSCULAR VOLUME 96.8 fl (83.0-99.0); MEAN PLATELET VOLUME 10.6 fl (9.4-12.3); MONOCYTES ABSOLUTE AUTO 0.4 K/mm3 (0.0-0.8); MONOCYTES PERCENT AUTO 6.6 % (0.0-8.0); NEUTROPHILS ABSOLUTE AUTO 3.9 K/mm3 (1.8-7.7); NEUTROPHILS PERCENT AUTO 70.8 % (41.0-71.0); PLATELET COUNT,PLT 180 K/mm3 (150-400); RED BLOOD CELL COUNT 4.35 M/mm3 (4.10-5.30); WHITE BLOOD CELL COUNT,WBC 5.49 K/mm3 (3.9-11.3)
[2024-11-29] MEDS: Diltiazem 25 MG/5 ML SDV IVPUSH ONE (21:51)
[2024-11-29 21:58] LABS: A/G RATIO 1.1 (1-2); ANION GAP 10.9 (5-15); BILIRUBIN TOTAL 0.3 mg/dL (0.2-1.0); BUN/CREATININE RATIO 16.9 (14-18); CALCIUM 10.3 mg/dL (8.5-10.1); CREATININE 1.3 mg/dL (0.55-1.02); EST CRCL DRUG DOSING (CG) 35.2 mL/min; MAGNESIUM 2.3 mg/dL (1.8-2.4); PROTEIN TOTAL,TP 7.5 g/dl (6.4-8.2); TSH 3.556 uIU/mL (0.358-3.74)
[2024-11-29 21:59] LABS: POTASSIUM,K 3.9 mEq/L (3.5-5.1)
[2024-11-29 22:36] LABS: APPEARANCE,URINE CLEAR (Clear); BILIRUBIN,URINE NEGATIVE (Negative); COLOR,URINE LIGHT YELLOW (Yellow); GLUCOSE,URINE NEGATIVE (Negative); KETONES,URINE NEGATIVE (Negative); LEUKOCYTE ESTERASE,URINE TRACE (Negative); NITRITE,URINE NEGATIVE (Negative); OCCULT BLOOD,URINE NEGATIVE (Negative); PH,URINE 6.5 (5.0-8.0); PROTEIN,URINE NEGATIVE (Negative); UROBILINOGEN,URINE 0.2 (0.2-1.0)
[2024-11-29 22:44] LABS: BACTERIA,URINE FEW /hpf (FEW); MUCUS,URINE FEW /hpf (FEW); RBC,URINE 0-5 /hpf (0-5); SQUAMOUS EPITHELIAL CELLS,UR 0-5 /hpf (0-5); WBC,URINE 0-5 /hpf (0-5)
[2024-11-30 07:05] VITALS: BP 115/79; PULSE 94
== END 2024-11-30 06:03 ==
LOC: JD.ED 21:00
DX: I48.91 Unspecified atrial fibrillation (principal); E83.52 Hypercalcemia; R94.31 Abnormal electrocardiogram [ECG] [EKG]; R79.89 Other specified abnormal findings of blood chemistry; Z45.010 Encounter for checking and testing of cardiac pacemaker pulse generator [battery]; I11.0 Hypertensive heart disease with heart failure; I50.9 Heart failure, unspecified; K21.9 Gastro-esophageal reflux disease without esophagitis; Z90.49 Acquired absence of other specified parts of digestive tract; Z79.899 Other long term (current) drug therapy
CPT/HCPCS: 36415; 71045; 71045-26; 80053; 80162; 81001; 83735; 83880; 84443; 84484; 85025; 87086; 93005; 93010; 96374; 99285; 99285-25; J3490

== ENCOUNTER → 2024-12-07 | Day surgery (SDC) | payer MEDICARE, OTHER ==
[2024-12-07] MEDS: Phenylephrine 2.5% Ophth Soln 2 ML Bot EYELF SCH (07:47)
[2024-12-07] MEDS: Lidocaine 1% PF 2 ML SDV INJECT SCH (07:47)
[2024-12-07] MEDS: Brimonidine 0.2% Ophth Soln 5 ML Bottle EYELF SCH (07:47)
[2024-12-07] MEDS: Pilocarpine 4% Ophth Soln 15 ML Bot EYELF SCH (07:47)
[2024-12-07] MEDS: Cefuroxime 10 MG/ML SYRINGE EYELF SCH (07:47)
[2024-12-07] MEDS: Tetracaine HCl/PF 0.5% 4 ML Bottle EYEBOTH SCH (07:47)
[2024-12-07] MEDS: Polymyxin B/Trimethoprim 10 ML Bottle EYELF SCH (07:48)
[2024-12-07] MEDS: Tropicamide 1% Ophth Soln 3 ML Bottle EYELF SCH (15:35)
[2024-12-07 17:11] VITALS: BP 120/60; PULSE 67
== END ==
LOC: JD.SDS 14:41
PROVIDERS: ATTEND Ophthalmology
DX: H25.812 Combined forms of age-related cataract, left eye (principal); H52.31 Anisometropia; H16.103 Unspecified superficial keratitis, bilateral; H16.223 Keratoconjunctivitis sicca, not specified as Sjogren's, bilateral; H43.813 Vitreous degeneration, bilateral; I48.91 Unspecified atrial fibrillation; Z79.01 Long term (current) use of anticoagulants; Z79.899 Other long term (current) drug therapy
CPT/HCPCS: 66984; A9270; J0697; J3490

== ENCOUNTER 2025-03-16 19:11 | Emergency (ER) | payer MEDICARE, OTHER ==
[2025-03-16] MEDS ORDERED: Sodium Chloride 0.9% 10 ML Syringe FLUSH PRN (19:34)
[2025-03-16 19:42] LABS: BASOPHILS ABSOLUTE AUTO 0.0 K/mm3 (0.0-0.2); BASOPHILS PERCENT AUTO 0.2 % (0.0-1.0); EOSINOPHILS ABSOLUTE AUTO 0.1 K/mm3 (0.0-0.4); EOSINOPHILS PERCENT AUTO 1.8 % (0.0-6.0); IMMATURE GRAN ABSOLUTE AUTO 0.01 K/mm3 (0.00-0.05); IMMATURE GRAN PERCENT AUTO 0.2 % (0.0-0.4); LYMPHOCYTES ABSOLUTE AUTO 1.1 K/mm3 (1.0-4.8); LYMPHOCYTES PERCENT AUTO 25.9 % (24.0-44.0); MEAN PLATELET VOLUME 10.4 fl (9.4-12.3); MONOCYTES ABSOLUTE AUTO 0.2 K/mm3 (0.0-0.8); MONOCYTES PERCENT AUTO 5.5 % (0.0-8.0); NEUTROPHILS ABSOLUTE AUTO 2.9 K/mm3 (1.8-7.7); NEUTROPHILS PERCENT AUTO 66.4 % (41.0-71.0); NRBC ABSOLUTE 0.00 (0.00-0.02); NRBC PERCENT 0.0 % (0.0-0.2); PLATELET COUNT,PLT 142 K/mm3 (150-400); RED BLOOD CELL COUNT 4.01 M/mm3 (4.10-5.30); WHITE BLOOD CELL COUNT,WBC 4.40 K/mm3 (3.9-11.3)
[2025-03-16 20:06] LABS: A/G RATIO 1.5 (1-2); ALANINE AMINOTRANSFERASE,ALT 52.0 U/L (14-59); ASPARTATE AMNIOTRANSFERASE,AST 30.0 U/L (15-37); BILIRUBIN TOTAL 0.8 mg/dL (0.2-1.0); BLOOD UREA NITROGEN,BUN 14.0 mg/dL (7-18); CARBON DIOXIDE,CO2 29.0 mEq/L (21-32); CHLORIDE,CL 107.0 mEq/L (98-107); CREATININE 1.3 mg/dL (0.55-1.02); EST CRCL DRUG DOSING (CG) 36.62 mL/min; ESTIMATED GFR 44.0 mL/min (>60); GLUCOSE RANDOM 105.0 mg/dL (70-99); POTASSIUM,K 3.9 mEq/L (3.5-5.1); PROTEIN TOTAL,TP 6.7 g/dl (6.4-8.2); SODIUM,NA 143.0 mEq/L (136-145); TROPONIN I HIGH SENSITIVITY 6.0 pg/mL (<=51); TSH 2.325 uIU/mL (0.358-3.74)
[2025-03-16 20:09] LABS: APPEARANCE,URINE CLEAR (Clear); GLUCOSE,URINE NEGATIVE (Negative); OCCULT BLOOD,URINE NEGATIVE (Negative)
[2025-03-16 20:28] LABS: SQUAMOUS EPITHELIAL CELLS,UR 0-5 /hpf (0-5)
[2025-03-16 22:41] VITALS: BP 127/73; PULSE 82
[2025-03-16] MEDS: Lidocaine 1% 2 ML ONE (22:42)
== END 2025-03-16 23:00 | disposition home or self-care (01) ==
LOC: JD.ED 19:11
DX: I48.91 Unspecified atrial fibrillation (principal); N39.0 Urinary tract infection, site not specified; I11.0 Hypertensive heart disease with heart failure; I50.9 Heart failure, unspecified; K21.9 Gastro-esophageal reflux disease without esophagitis; Z90.49 Acquired absence of other specified parts of digestive tract; Z79.899 Other long term (current) drug therapy; Z79.01 Long term (current) use of anticoagulants
CPT/HCPCS: 36415; 71045; 80053; 81001; 83690; 83735; 83880; 84443; 84484; 85025; 87086; 93005; 96374; 99285; J0696